=== PATIENT | female | born 1990 | race Caucasian/White ===

== ENCOUNTER 2017-11-24 12:08 | Emergency (ER) | payer BC, SELFPAY ==
[2017-11-24 12:09] VITALS: BP 147/88; PULSE 96; RESP 16; TEMP 36.6; O2SAT 99; BMI 25.0
--- NOTE | 2017-11-24 12:46 | CT_ITS ---
STUDY: CT ABDOMEN AND PELVIS WITH CONTRAST REASON FOR EXAM: Female, 27 years old. Dark urine. Elevated bilirubin. Abnormal platelet count. Fever and chills. RADIATION DOSAGE (If Supplied By Facility): CTDIvol = ( 9.21 ) mGy, DLP = ( 409.64 ) mGycm TECHNIQUE: Transaxial images were obtained from the dome of the diaphragm to the symphysis pubis with oral contrast. 100 ml of Isovue 300 contrast was administered. Sagittal and coronal images were reconstructed. Individualized dose optimization techniques were used for this CT. COMPARISON: None. FINDINGS: The visualized lung bases are unremarkable. The visualized portions of the heart are within normal limits. Normal liver. Pericholecystic fluid. Questionable small gallstones in the gallbladder lumen. Normal spleen. Normal pancreas. Normal bilateral adrenal glands. Normal right kidney. Normal left kidney. There is a small hiatal hernia. Normal small intestine. Normal colon. The appendix is visualized and appears normal. Normal abdominal aorta. Normal inferior vena cava. Normal retroperitoneum. Normal urinary bladder. Small lymph nodes in both groins. Minimal amount of free fluid in the cul-de-sac. Normal abdominal wall. Normal osseous structures. Dextroscoliosis. CT/Abdomen/Pelvis WITH Contrast IMPRESSION: Pericholecystic fluid. Possible gallstones. Electronically Signed: Yaron Azul MD at 15:15 EST Tel [phone], Service support ,
[2017-11-24] MEDS: 0.9% Normal Saline 1,000 ML 1000 ML IV (12:54)
[2017-11-24] MEDS: Ondansetron 4 MG/2 ML Vial IV ×2 (12:55→15:01)
[2017-11-24 13:24] LABS: Absolute Lymphocyte Count 3.95 X10^3/ul (0.83-4.51); Absolute Neutrophil Count 1.3 X10^3/uL (2.0-7.7); Basophil# 0.55 X10^3/uL; Basophil% 7.8 % (0-1); Hematocrit 35.9 % (37-47); Hemoglobin 12.3 g/dl (12.0-15.0); Lymphocyte # 3.95 X10^3/ul (4.0); Lymphocyte % 56.3 % (19-41); Mean Corp Hgb Conc 34.3 g/gl (32-36); Mean Corpuscular Hgb 31.8 pg (27.0-32.0); Mean Corpuscular Volume 92.8 fL (81-99); Mean Platelet Vol. 11.5 fl (6.2-12.0); Monocyte# 1.16 X10^3/uL; Monocyte% 16.5 % (0-10); Neutrophil # 1.34 X10^3/uL (2.7-7.7); Neutrophil % 19.3 % (47-70); Platelet Count 86 K/mm3 (150-450); RBC Distribution Width CV 12.8 % (11.6-14.6); RBC Distribution Width SD 43.1 fl (35.1-43.9); Red Blood Count 3.87 M/mm3 (4.2-5.4)
[2017-11-24 13:34] LABS: AST(SGOT) 192 U/L (15-37); Alanine Aminotransfer ALT/SGPT 279 U/L (13-56); Albumin, Serum 3.2 g/dL (3.2-5.0); Alkaline Phosphatase 260 U/L (45-117); Anion Gap 10 (5-15); BUN 9 mg/dL (7-18); BUN/Creat Ratio 13.8 RATIO (10-20); Bilirubin, Direct 5.21 mg/dL (0.00-0.30); Calcium,Total 8.6 mg/dL (8.5-10.1); Chloride 100 mmol/L (98-107); Creatinine, Serum 0.65 mg/dL (0.55-1.02); EST Glomerular Filtration Rate 115 mL/min (>60); Est Glom Filt Rate - Afr Amer 139 mL/min (>60); Estimated Creatinine Clearance 111.27 ml/min; Globulin 4.1 g/dL (2.2-4.2); Glucose 78 mg/dL (70-110); Lipase 162 U/L (73-393); Potassium 3.5 mmol/L (3.5-5.1); Protein, Total 7.3 g/dL (6.4-8.2); Sodium Level 135 mmol/L (136-145)
[2017-11-24 13:38] LABS: Pregnancy, Serum, hCG Quali. NEGATIVE Negative (0-9 Nonpreg)
[2017-11-24 13:50] LABS: POSITIVE COUNT NO; POSITIVE DIFFERENTIAL YES; POSITIVE MORPHOLOGY YES
[2017-11-24 13:51] LABS: Atypical Lymphocyte 2+ %; Differential Indicated SCAN CRITERIA MET; Platelet Estimate MOD DEC (ADEQ)
[2017-11-24] MEDS: Ketorolac 30 MG/ML Syringe IV (15:01)
[2017-11-24 15:08] VITALS: BP 109/62; PULSE 93; RESP 16; O2SAT 98
--- NOTE | 2017-11-24 15:53 | ED.DCSUM_ITS ---
- ER Visit Summary Date of Service: 11/24/17 Chief Complaint: [place] and jaundice History of Present Illness: The patient is a [address] Prosper Alcazar III. She reports that she has swollen lymph nodes in her neck that began 3 days ago. She was seen at urgent care yesterday and told that she potentially has mono. They did blood work and called her today and called her to come the emergency department because her platelets were low and her LFTs were high. Patient reports that she has jaundice that began yesterday. She has had subjective fever and chills. She reports that she has a sore throat that is 3 out of 10 severity. She reports that she has abdominal pain that has been constant for the past 2 days. Is 5 out of 10 at rest and out of 10 with pushing on it. She has had nausea without vomiting. Her last bowel movement was today. She has had no blood in her stools. No kemar colored stools. Physical Examination: Vitals: Stable. Afebrile. General: Well-nourished and well-developed. Head: Normocephalic atraumatic. Neck: Supple, no lymphadenopathy. No JVD. Nontender. Cardiovascular: Regular rate and rhythm. No murmurs. Respiratory: No respiratory distress. Clear to auscultation bilaterally. Abdominal: Soft, mild tenderness palpation in the left upper quadrant/right upper quadrant/epigastric region, nondistended, normal bowel sounds. No guarding, rebound, or peritoneal signs. Back: Nontender. Extremities: Nontender, no edema. Skin: Mild jaundice. Neurologic: Alert and oriented ?3. Cranial nerves II through XII are intact. Normal strength and sensation. Psych: Normal affect. Test Results: CBC is marked for hematocrit 35.9, platelets of 86, lymphocytes of 19, monocytes of 17, lymphocytes of 56, basophils of 8. Chem-7 is more for sodium 135. LFTs marked for total bili of 6.7, direct bili 5.21, alk phos of 260, ALT of 279, AST 192. test is negative. CT abdomen pelvis. IV contrast shows pericholecystic fluid. Question small gallstones. Normal appendix. Normal liver, pancreas, and spleen. Emergency Department Course and Treatment: Patient was treated with Toradol and Zofran IV. She is resting comfortably. She would like to go home. Treatment Plan: Patient was discussed Dr. Prosper Alcazar III. She will be discharged instructions follow-up with nurse practitioner tomorrow. She is given Zofran for nausea and oxycodone for pain. A viral hepatitis panel was sent. She is instructed to return to the emergency room for any worsening symptoms. Disposition: To home in improved and stable condition. Impression: 1. Mononucleosis. 2. Hepatitis. 3. Thrombocytopenia. This note was generated with [employer] dictation software. It may contain incorrect words, spelling, and punctuation that were not noted in review of the chart prior to signing ED Disposition - Plan for ED Patient: Chief Complaint: Abn Labs Instructions: ED Hepatitis Cause Unkn Test Pen, ED Mononucleosis Prescriptions: Oxycodone [Oxyir] 5 mg PO Q6H PRN PRN 3 Days #12 tablet PRN Reason: Pain Ondansetron [Zofran Odt] 4 mg PO Q8H PRN PRN #10 tablet PRN Reason: Nausea Referrals: Prosper Alcazar III, MD [Primary Care Provider] - 1 Day for another exam
[2017-11-25 15:24] LABS: Pathologist Review Reviewed
[2017-11-26 06:08] LABS: HEPATITIS B SURFACE AG Negative (Negative); Hepatitis A IgM Antibody Negative (Negative); Hepatitis B Core AB IgM Negative (Negative)
[2017-11-26 09:01] LABS: Hep C Antibodies 0.1 s/co ratio (0.0-0.9)
== END 2017-11-24 16:52 | disposition home or self-care (01) ==
PROVIDERS: Emergency Provider Emergency Medicine; Family Provider Family Medicine; PCP Family Medicine
DX: B27.90 Infectious mononucleosis, unspecified without complication (principal); K75.9 Inflammatory liver disease, unspecified; D69.6 Thrombocytopenia, unspecified; E03.9 Hypothyroidism, unspecified; Z79.899 Other long term (current) drug therapy
CPT/HCPCS: 74177; 80048; 80074; 80076; 83690; 84703; 85025; 96361; 96374; 96375; 96376; 99283; J7030; Q9967; A4216; J2405

== ENCOUNTER 2017-11-25 11:42 | Emergency (ER) | payer BC, SELFPAY ==
[2017-11-24 12:09] VITALS: BMI 25.0
[2017-11-24 15:08] VITALS: BP 109/62
[2017-11-25 11:44] VITALS: BP 128/81; PULSE 93; RESP 16; TEMP 36.9; O2SAT 100; BMI 26.1
--- NOTE | 2017-11-25 11:57 | US_ITS ---
STUDY: ABDOMINAL ULTRASOUND - RIGHT UPPER QUADRANT REASON FOR VISIT: Female, 27 years old. Abdominal pain. TECHNIQUE: Ultrasound evaluation of the right upper quadrant was performed with real-time and static vickers-scale imaging. TECHNICAL QUALITY: Adequate. COMPARISON: Comparison is made with prior CT scan and abdomen dated November 24, 2017. FINDINGS: Liver: The liver measures 14.3 cm. There is normal echogenicity of the liver. The bile ducts are within normal limits. There is hepatic color flow. The direction of portal flow is hepatopetal. There is no demonstrated mass lesion. Gallbladder: There is a contracted gallbladder. There is a positive sonographic Lorenzo's sign. There is no pericholecystic fluid. Strong shadows are coming from the gallbladder fossa. This may represent a contracted stone filled gallbladder. Please note that the patient was not NPO Common Bile Duct (C.B.D.): The common bile duct measures 2.0 mm. Pancreas: Normal size of the head, body and tail of the pancreas. There is increased echogenicity of the pancreas. There is no demonstrated pancreatic mass or cyst. Right Kidney: Normal size of the right kidney. The right kidney measures 11.3 cm x 4.8 size by 3.7 cm. Normal renal cortex. The right cortex measures 1.1 cm. There is no demonstrated renal mass or cyst. There is no right hydronephrosis. US/Gallbladder IMPRESSION: Contracted gallbladder. Strong echoes are seen arising from the gallbladder lumen. A contracted stone filled gallbladder should be ruled out. Please note that the patient was not NPO Electronically Signed: Yaron Azul MD at 13:52 EST Tel [phone], Service support ,
--- NOTE | 2017-11-25 12:01 | ED.DCSUM_ITS ---
- ER Visit Summary Date of Service: 11/25/17 Chief Complaint: Not feeling well, mononucleosis History of Present Illness: The patient is a 27 F who presents with malaise and not feeling well. She was seen here yesterday and was diagnosed with mononucleosis. She had elevated liver enzymes and bilirubin. She followed up with the nurse practitioner at her PCPs office today who sent her back in because of continued symptoms of not feeling well. She has pain in her abdomen , neck and back. She is currently on oxycodone at home. She has not had a fever. She was diagnosed with mono at an urgent care, where she had a Monospot completed. Physical Examination: Vital signs reviewed. HEENT exam unremarkable. Heart is tachycardic and regular rhythm without murmurs. Lungs are clear to auscultation. Abdomen is soft with right upper quadrant tenderness to palpation. Extremities reveal no edema. Skin exam does have a slight yellowish hue to it. Her neurologic exam is intact and normal Test Results: Laboratory studies reveal a white blood cell count of 10.7, total bilirubin is 6.4, down from 6.7 yesterday. ALT is 337, AST 288. These are elevated from yesterday. Right upper quadrant ultrasound reveals a contracted gallbladder Emergency Department Course and Treatment: Patient received morphine and Zofran. She continued to have pain so she was given Dilaudid and Phenergan. Treatment Plan: I spoke with Dr. Baez about this patient. Yesterday she had pericholecystic fluid with gallstones. Today her gallbladder is not very well visualized. She reviewed the labs and imaging. She felt that this was not related to the gallbladder and that she may need a GI specialist. I agree with this. We have no GI coverage here this weekend. Patient requested [facility]. I spoke with them and the patient will be transferred there Disposition: Transfer Impression: Transaminitis, mononucleosis This note was generated with [employer] dictation software. It may contain incorrect words, spelling, and punctuation that were not noted in review of the chart prior to signing ED Disposition - Plan for ED Patient: Chief Complaint: General Illness Referrals: Prosper Alcazar III, MD [Primary Care Provider] -
[2017-11-25] MEDS: 0.9% Normal Saline 1,000 ML 1000 ML IV (12:19)
[2017-11-25] MEDS: Ondansetron 4 MG/2 ML Vial IV (12:19)
[2017-11-25 12:46] LABS: Hematocrit 35.2 % (37-47); Hemoglobin 12.3 g/dl (12.0-15.0); Mean Corp Hgb Conc 34.9 g/gl (32-36); Mean Corpuscular Hgb 32.4 pg (27.0-32.0); Mean Corpuscular Volume 92.6 fL (81-99); Mean Platelet Vol. 11.9 fl (6.2-12.0); Platelet Count 101 K/mm3 (150-450); RBC Distribution Width CV 12.5 % (11.6-14.6); RBC Distribution Width SD 40.9 fl (35.1-43.9); White Blood Count 10.7 K/mm3 (4.4-11.0)
[2017-11-25 12:47] LABS: Differential Indicated MANUAL DIFF; POSITIVE COUNT NO; POSITIVE DIFFERENTIAL YES; POSITIVE MORPHOLOGY YES
[2017-11-25 12:56] LABS: AST(SGOT) 288 U/L (15-37); Alanine Aminotransfer ALT/SGPT 337 U/L (13-56); Alkaline Phosphatase 306 U/L (45-117); Anion Gap 8 (5-15); BUN 6 mg/dL (7-18); BUN/Creat Ratio 7.8 RATIO (10-20); Bilirubin, Direct 5.06 mg/dL (0.00-0.30); Chloride 99 mmol/L (98-107); Creatinine, Serum 0.77 mg/dL (0.55-1.02); EST Glomerular Filtration Rate 95 mL/min (>60); Est Glom Filt Rate - Afr Amer 114 mL/min (>60); Estimated Creatinine Clearance 93.93 ml/min; Globulin 4.3 g/dL (2.2-4.2); Glucose 88 mg/dL (70-110); Lipase 168 U/L (73-393); Potassium 3.6 mmol/L (3.5-5.1); Protein, Total 7.3 g/dL (6.4-8.2); Sodium Level 134 mmol/L (136-145)
[2017-11-25 13:00] VITALS: BP 117/83; PULSE 92; RESP 16; O2SAT 95
[2017-11-25 13:43] LABS: Neutrophil-Band 9 % (0-5); Neutrophil-Segmented 10 % (47-70); Total Cells Counted 100 (MANUAL DIFF)
[2017-11-25 13:44] LABS: Blast 2 % (0-0); Lymphocyte 78 % (19-41); Metamyelocyte 1 % (0-1)
[2017-11-25 13:48] LABS: Platelet Estimate SLT DEC (ADEQ)
[2017-11-25 13:49] LABS: Red Cell Morphology NORM C+C NORMAL (NORM C&C)
[2017-11-25 13:52] LABS: Smudge Cells RARE
[2017-11-25] MEDS: HYDROmorphone 1 MG/ML Syringe IV (13:53)
[2017-11-25 14:10] VITALS: BP 114/78; PULSE 90; RESP 14; O2SAT 99
[2017-11-25 16:24] VITALS: BP 114/71; PULSE 78; RESP 16; O2SAT 99
[2017-11-25 16:41] VITALS: BP 109/72; PULSE 79; RESP 16; TEMP 37.2; O2SAT 99
[2017-11-28 15:02] LABS: Pathologist Review Reviewed
== END 2017-11-25 17:21 | disposition short-term general hospital (02) ==
PROVIDERS: Emergency Provider Emergency Medicine; Family Provider Family Medicine; PCP Family Medicine
DX: K82.0 Obstruction of gallbladder (principal); R74.0 Nonspecific elevation of levels of transaminase and lactic acid dehydrogenase [LDH]; B27.90 Infectious mononucleosis, unspecified without complication; E03.9 Hypothyroidism, unspecified; Z79.899 Other long term (current) drug therapy
CPT/HCPCS: 76705; 80048; 80076; 83690; 85025; 96361; 96374; 96375; 99285; J7030; A4216; J2405

== ENCOUNTER → 2023-05-25 | Outpatient (CLI) | payer BC, SELFPAY ==
--- NOTE | 2023-05-25 07:37 | MRI_ITS ---
INDICATION: OCCIPITAL pain RADIATING INTO NECK EXAMINATION: MRI - MR Brain WO/W Contrast TECHNIQUE: Multiplanar and multisequence MR images of the brain were obtained without and with gadolinium. IV Contrast Dosage and Agent: 13 ml clariscan COMPARISON: CT head November 27, 2018 FINDINGS: BRAIN PARENCHYMA: Normal midline developmental anatomy. No Chiari malformation. Unremarkable sella. Cerebellar pontine angles are clear. No evidence of space-occupying intracranial mass or mass effect. No diffusion restriction. Normal vickers-white matter signal. No evidence of prior hemorrhage. After administration of IV contrast there is no abnormal brain parenchymal or meningeal enhancement. INTERNAL AUDITORY CANALS: The internal auditory canals are well visualized and patent. No mass identified. CSF SPACES: Appropriate for age. No hydrocephalus. Basal cisterns are patent. VASCULAR SYSTEM: Normal flow voids in the major intracranial circulation. CALVARIUM, SKULL BASE, PARANASAL SINUSES AND MASTOID AIR CELLS: Clear. No expansile changes. ORBITS: Both globes, extraocular muscles, optic nerves and retrobulbar fat appear unremarkable. MRI/Brain W/WO Contrast IMPRESSION: Negative MRI Brain with and without IV contrast. Electronically Signed: Diallo Chávez MD at 10:14 EDT ,
== END | disposition home or self-care (01) ==
PROVIDERS: PCP Family Medicine; Referring Provider Orthopaedic Surgery; Visit Provider Orthopaedic Surgery
DX: M54.81 Occipital neuralgia (principal)
CPT/HCPCS: 70553; A9575

== ENCOUNTER → 2023-08-06 | Outpatient (CLI) | payer BC, SELFPAY ==
--- NOTE | 2023-08-06 07:00 | MRI_ITS ---
HISTORY: pain. TECHNIQUE: Multiplanar and multisequence MR images of the cervical spine were obtained without contrast. 196 images. COMPARISON: XR 07/27/2023. FINDINGS: VERTEBRAE: Vertebral body heights are maintained. No significant bone marrow signal abnormality. VERTEBRAL ALIGNMENT: Straightening of the cervical lordosis without anterior or posterior subluxation. SPINAL CANAL: Cervical cord signal and morphology within normal limits. No gross epidural collection or ligamentous disruption. SOFT TISSUES: No prevertebral fluid collection. INTERVERTEBRAL DISCS: C2-3, C3-4: No significant disc signal abnormality, posterior disc protrusion, central canal stenosis, or foraminal narrowing. C4-5, C5-6: Minimal posterior disc protrusions without significant central canal stenosis or foraminal narrowing. C6-7, C7-T1: No significant disc signal abnormality, posterior disc protrusion, central canal stenosis, or foraminal narrowing. MRI/Spine Cervical (Routine) IMPRESSION: Minimal degenerative disc disease in the cervical spine without significant spinal canal stenosis or foraminal narrowing. Electronically Signed: Anu Sheehan MD at 15:16 EDT ,
== END | disposition home or self-care (01) ==
PROVIDERS: PCP Family Medicine; Referring Provider Orthopaedic Surgery; Visit Provider Orthopaedic Surgery
DX: M54.2 Cervicalgia (principal)
CPT/HCPCS: 72141